=== PATIENT | male | born 1950 | race Caucasian/White ===

== ENCOUNTER → 2017-01-01 | Outpatient (CLI) | payer BC | LOC: COL.RAD 09:17 | DX: I71.4 Abdominal aortic aneurysm, without rupture (principal) ==

== ENCOUNTER → 2018-08-01 | Outpatient (CLI) | payer BC | LOC: COL.RAD 07:19 | DX: I71.4 Abdominal aortic aneurysm, without rupture (principal) ==

== ENCOUNTER 2019-03-18 12:59 | Day surgery (SDC) | payer BC ==
[~2019-03-18] VITALS: Ht 177.8 cm; Wt 107.7 kg
[2019-03-18] VITALS (10 sets, daily range): BP systolic 116–159; BP diastolic 65–101; PULSE 59–115; TEMP 97.2–98
[2019-03-18] MEDS ORDERED: ADALAT CC60 MG PO (13:35)
--- NOTE | 2019-03-18 17:15 | NUR ---
Patient up from OR by bed, Alert and oriented x 3. Assessment complete. Family at bedside. CBI infusing at fast rate. López to dependent drainage with clear pink urine. Post op fluids infusing via gravity. Post op VSS. Denies pain at this time. Denies further needs at this time.
--- NOTE | 2019-03-18 18:37 | NUR ---
Patient in bed resting. Family remains at bedside. CBI infusing at a moderate rate, urine clear and pink. Denies pain at this time. States he is not hungry at this time, patient requested juice, tolerating liquids. Denies further needs at this time. Will report off to cheese pancake roller.
--- NOTE | 2019-03-18 19:00 | NUR ---
Report received from Mariah ORTIZ. Patient rests in bed awake and alert. Denies pain. Several visitors at bedside. Urine pale yellow with strings of red.
--- NOTE | 2019-03-18 21:30 | NUR ---
Visitors left for then night. Patient rests in bed. States has some burning to senior catheter insertion site but denies need for pain med. CBI at slow rate. Senior cath draining light yellow to pink urine.
--- NOTE | 2019-03-19 01:57 | NUR ---
Patient reports sleeping off and on. Denies pain. CBI remains to slow rate.
[2019-03-19 03:10] VITALS: BP 123/71; PULSE 64; TEMP 98.6
--- NOTE | 2019-03-19 03:15 | NUR ---
Patient awake and magazine given. Reviewed 6 bottle routine after catheter is removed. Explained he's on a regular diet.
--- NOTE | 2019-03-19 07:17 | NUR ---
Bedside report from DIANA Pavon. Pt alert, oriented, bedresting, watching TV, reports he ordered breakfast, washed face, denies pain. Call light in reach. Called to bring in home med.
[2019-03-19 08:55] VITALS: BP 140/78; PULSE 76; TEMP 97.4
--- NOTE | 2019-03-19 09:20 | NUR ---
Called Bna Price, onc RN about mytomycin, she states order needs more info and she will contact pharmacy. , Medina brought med from home, VORB from [place] to give.
--- NOTE | 2019-03-19 09:47 | NUR ---
See phys notification.
--- NOTE | 2019-03-19 10:40 | NUR ---
Primed and pulled CBI cath. Pt SBA to BR with urinal. at bedside.
[2019-03-19 11:45] VITALS: BP 129/64; PULSE 73; TEMP 97.8
--- NOTE | 2019-03-19 12:14 | NUR ---
Pt passed large blood clot in urine that was red-tinged kaylah colored. Enc to order lunch and cont drinking plenty of fluids. Ice tea provided earlier, has water mug. visiting.
--- NOTE | 2019-03-19 13:24 | NUR ---
Pt had two voids of clear yellow urine. Will begin working on discharge
--- NOTE | 2019-03-19 14:25 | NUR ---
Reviewed discharge instructions with pt, spouse, family. Called [facility] to escourt out.
--- NOTE | 2019-03-19 14:34 | NUR ---
Printed Pt health summary, discharge summary, and home med list (wrote in colace (docusate sodium) 100 mg twice daily) and reviewed with pt, , and children. Stressed importance of post-op TURBT instructions and activity level, questions answered. Belongings gathered by pt, left wearing clothes, shoes, and glasses. Pt transported via wheelchair by [facility] for ride home.
== END 2019-03-19 14:37 | disposition home or self-care (01) ==
LOC: SDCO 12:59 → SURG 17:15 → SDCO 03-19 14:37
DX: C67.9 Malignant neoplasm of bladder, unspecified (principal); N30.20 Other chronic cystitis without hematuria; N30.80 Other cystitis without hematuria; N40.1 Benign prostatic hyperplasia with lower urinary tract symptoms; I10 Essential (primary) hypertension; Z79.82 Long term (current) use of aspirin; Z79.899 Other long term (current) drug therapy; Z80.8 Family history of malignant neoplasm of other organs or systems; I71.4 Abdominal aortic aneurysm, without rupture
CPT/HCPCS: OP; C1769; J0690; J1100; J1885; J2405; J2704; J3010; J7120; Q9967

== ENCOUNTER → 2019-04-01 | Outpatient (CLI) | payer BC ==
[~2019-04-01] MED LIST: ADALAT CC60 MG PO; MOTRIN 600600 MG/TAB PO; NORCO 325 MG-51 TAB PO
== END ==
LOC: COL.VAS 09:41
DX: Z01.810 Encounter for preprocedural cardiovascular examination (principal); C67.9 Malignant neoplasm of bladder, unspecified

== ENCOUNTER 2019-04-10 10:26 | Day surgery (SDC) | payer BC ==
[~2019-04-10] VITALS: Ht 177.8 cm; Wt 105.6 kg
[~2019-04-10 10:26] MED LIST changes: -MOTRIN 600600 MG/TAB PO; -NORCO 325 MG-51 TAB PO
[2019-04-10 11:17] VITALS: BP 133/77; PULSE 86; TEMP 98.3
--- NOTE | 2019-04-10 11:26 | NUR ---
TO RM 7 AT 1039- CALL LIGHT IN REACH [facility] AT BEDSIDE.
[2019-04-10 13:31] VITALS: BP 127/69; PULSE 78; TEMP 98.2
--- NOTE | 2019-04-10 13:31 | NUR ---
TO RM 7 PER CART FROM [facility] ALERT ORIENTED X3, TALKING TO STAFF AND . DESIR SET OVER THE INCISION, CLEAN DRY INTACT. DENIES PAIN DENIES NAUSEA OR VOMITING RECEIVED ICE TEA
[2019-04-10] MEDS ORDERED: MOTRIN 600600 MG/TAB PO (13:39)
[2019-04-10] MEDS ORDERED: NORCO 325 MG-51 TAB PO (13:39)
[2019-04-10 13:45] VITALS: BP 140/82; PULSE 72
--- NOTE | 2019-04-10 13:45 | NUR ---
RECEIVED CRACKERS SITTING UP TALKING WITH HIS .
[2019-04-10 14:00] VITALS: BP 137/84; PULSE 69
--- NOTE | 2019-04-10 14:00 | NUR ---
ATE 100% AND TOLERATED WELL. UP AMBULATED TO BATHROOM, VOIDED AND TOLERATED WELL.
--- NOTE | 2019-04-10 14:15 | NUR ---
RECEIVED DISCHARGE INSTRUCTIONS AND VERBALIZED UNDERSTANDING DISCONTINUED IV AND INT- CATHETER INTACT.
--- NOTE | 2019-04-10 14:30 | NUR ---
DISCHARGED PER WC BY NURSING STAFF TO PRIVATE CAR IN CARE OF - [facility].
== END 2019-04-10 14:44 | disposition home or self-care (01) ==
LOC: SDCO 10:26
DX: C67.9 Malignant neoplasm of bladder, unspecified (principal); E78.00 Pure hypercholesterolemia, unspecified; I10 Essential (primary) hypertension; Z80.8 Family history of malignant neoplasm of other organs or systems; Z79.82 Long term (current) use of aspirin; N40.0 Benign prostatic hyperplasia without lower urinary tract symptoms
CPT/HCPCS: C1788; J0690; J1644; J2250; J2704; J7120

== ENCOUNTER → 2019-04-13 | Outpatient (CLI) | payer BC ==
[~2019-04-13] MED LIST changes: +MOTRIN 600600 MG/TAB PO; +NORCO 325 MG-51 TAB PO
== END ==
LOC: COL.RAD 07:36
DX: Z01.812 Encounter for preprocedural laboratory examination (principal); Z45.2 Encounter for adjustment and management of vascular access device; C67.9 Malignant neoplasm of bladder, unspecified; I51.7 Cardiomegaly; R09.89 Other specified symptoms and signs involving the circulatory and respiratory systems; M89.8X8 Other specified disorders of bone, other site; R91.1 Solitary pulmonary nodule; I71.4 Abdominal aortic aneurysm, without rupture; Z95.828 Presence of other vascular implants and grafts
CPT/HCPCS: J0690; J2250; J2704; Q9967

== ENCOUNTER → 2020-02-17 | Outpatient (CLI) | payer BC ==
[2020-02-17 07:59] LABS: BASO # 0.1 (0.0-0.2); BASO % 0.9 % (0.0-2.0); EOS # 0.1 (0.0-0.7); EOS % 2.4 % (0-4.0); GRAN # 3.4 (1.4-6.5); GRAN % 62.5 % (42.2-75.2); HEMOGLOBIN 11.9 g/dl (13.5-18.0); LYMPH # 1.4 (1.2-3.4); LYMPH % 26.2 % (20.0-51.0); MEAN CELL VOLUME 91 fl (80.0-100.0); MEAN CORPUSCULAR HEMOGLOBIN 30 pg (27.0-31.0); MEAN CORPUSCULAR HGB CONC 33 g/dl (33.0-37.0); MEAN PLATELET VOLUME 9.7 fl (7.4-10.4); MONO # 0.4 (0.1-0.6); MONO % 7.8 % (1.7-9.3); PLATELET COUNT 151 K/mm3 (130-400); RED BLOOD COUNT 3.92 M/mm3 (4.20-5.60); REDCELL DISTRIBUTION WIDTH-CV 13.5 % (11.5-14.5)
[2020-02-17 08:00] LABS: HEMATOCRIT 35.7 % (42.0-52.0)
[2020-02-17 08:10] LABS: ALBUMIN 4.3 gm/dL (3.5-5.0); BILIRUBIN,TOTAL 0.4 mg/dL (0.0-1.0); CREATININE, serum 1.46 (0.66-1.25); POTASSIUM 4.1 mmol/L (3.4-5.0); TOTAL PROTEIN 7.6 gm/dL (6.4-8.2)
== END ==
LOC: COL.RAD 07:14
DX: C67.8 Malignant neoplasm of overlapping sites of bladder (principal); I77.810 Thoracic aortic ectasia; I71.4 Abdominal aortic aneurysm, without rupture; Z90.79 Acquired absence of other genital organ(s)
CPT/HCPCS: Q9967

== ENCOUNTER → 2020-04-07 | Outpatient (CLI) | payer BC | LOC: COL.RAD 12:14 | DX: N17.9 Acute kidney failure, unspecified (principal); N28.1 Cyst of kidney, acquired; Z90.6 Acquired absence of other parts of urinary tract ==

== ENCOUNTER → 2021-09-20 | Outpatient (CLI) | payer MEDICARE, BC | LOC: COL.RAD 09:07 | DX: I71.4 Abdominal aortic aneurysm, without rupture (principal); Z90.49 Acquired absence of other specified parts of digestive tract | CPT/HCPCS: Q9967 ==

== ENCOUNTER → 2022-03-09 | Outpatient (CLI) | payer MEDICARE, BC | LOC: COL.RAD 08:13 | DX: I71.4 Abdominal aortic aneurysm, without rupture (principal); Z90.79 Acquired absence of other genital organ(s) | CPT/HCPCS: Q9967 ==